=== PATIENT | male | born 1995 | race Caucasian/White ===

== ENCOUNTER 2024-07-27 15:14 | Emergency (ER) | payer BC, OTHER ==
[2024-07-27] MEDS: Glucagon,Human Recombinant 1 MG Vial IV ONE (15:33)
[2024-07-27 16:05] VITALS: BP 110/71; PULSE 67
== END 2024-07-27 16:00 | disposition home or self-care (01) ==
LOC: VM.ED 15:14
DX: T18.108A Unspecified foreign body in esophagus causing other injury, initial encounter (principal); W45.8XXA Other foreign body or object entering through skin, initial encounter
CPT/HCPCS: 96374; 99283; 99283-25; J1610